=== PATIENT | female | born 1950 | race Caucasian/White ===

== ENCOUNTER → 2021-11-24 | Outpatient (CLI) | payer MEDICARE | END | disposition home or self-care (01) | LOC: LABWHC1 12:34 | PROVIDERS: ATTEND Internal Medicine | DX: E03.9 Hypothyroidism, unspecified (principal) | CPT/HCPCS: 36415; 84443 ==

== ENCOUNTER → 2021-11-25 | Outpatient (CLI) | payer MEDICARE ==
[2021-11-25 15:25] LABS: Potassium 3.9 mmol/L (3.5-5.1)
[2021-11-25 15:26] LABS: Calcium 9.7 mg/dL (8.4-10.2)
[2021-11-25 15:30] LABS: Basophils # (A) 0.1 k/uL (0-0.2); Basophils % (A) 1 %; Eosinophils # (A) 0.4 k/uL (0-0.7); Eosinophils % (A) 6 %; HCT 39.8 % (34.0-46.0); HGB 12.9 gm/dL (11.4-16.0); Lymphocytes # (A) 1.6 k/uL (1.0-4.8); Lymphocytes % (A) 24 %; MCH 30.7 pg (25.0-35.0); MCHC 32.5 g/dL (31.0-37.0); MCV 94.7 fL (80.0-100.0); Mean Platelet Volume 10.1; Monocytes # (A) 0.4 k/uL (0-1.0); Monocytes % (A) 6 %; Neutrophils # (A) 4.1 k/uL (1.3-7.7); Neutrophils % (A) 61 %; Platelet Count 292 k/uL (150-450); RBC 4.21 m/uL (3.80-5.40); RDW 12.9 % (11.5-15.5); WBC 6.7 k/uL (3.8-10.6)
== END | disposition home or self-care (01) ==
LOC: LABPAT 14:09
PROVIDERS: ATTEND Urology
DX: Z01.812 Encounter for preprocedural laboratory examination (principal); N20.1 Calculus of ureter; N20.0 Calculus of kidney
CPT/HCPCS: 36415; 80048; 85025

== ENCOUNTER 2021-12-02 13:21 | Day surgery (SDC) | payer MEDICARE ==
[2021-11-26 11:08] VITALS: BMI 26.2
--- NOTE | 2021-12-01 20:04 | P.GSHP ---
History of Present Illness H&P Date: 12/01/21 Chief Complaint: Left hydronephrosis The patient is a 71-year-old white female with no prior history of urolithiasis. She was recently found to have renal insufficiency. A renal ultrasound was obtained, revealing severe left hydronephrosis with thinned left renal parenchyma. A CT scan was obtained, revealing that the hydronephrosis resulted from 2 left distal ureteral calculi, the largest of which measured 12 mm. - Constitutional Constitutional: Denies chills, Denies fever - Genitourinary (Female) Genitourinary: Reports urinary frequency, Denies dysuria, Denies flank pain, Denies hematuria Past Medical History Past Medical History: Diabetes Mellitus, GERD/Reflux, Hyperlipidemia, Hypertension, Thyroid Disorder History of Any Multi-Drug Resistant Organisms: None Reported Past Surgical History: Heart Catheterization With Stent, Hysterectomy Additional Past Surgical History / Comment(s): COLONOSCOPY Past Anesthesia/Blood Transfusion Reactions: No Reported Reaction Date of Last Stent Placement:: 2008 Smoking Status: Never smoker - Past Family History Father Family Medical History: Cancer Mother Family Medical History: Cancer Brother(s) Family Medical History: Cancer Medications and Allergies Home Medications Medication Instructions Recorded Confirmed Type Aspirin 81 mg PO DAILY 11/26/21 11/26/21 History Atorvastatin [Lipitor] 40 mg PO HS 11/26/21 11/26/21 History Famotidine [Pepcid AC] 10 mg PO DAILY PRN 11/26/21 11/26/21 History Ferrous Sulfate [Feosol] 325 mg PO DAILY 11/26/21 11/26/21 History Levothyroxine Sodium [Synthroid] 100 mcg PO DAILY 11/26/21 11/26/21 History Losartan-Hctz 50-12.5 mg [Hyzaar 1 tab PO DAILY 11/26/21 11/26/21 History 50-12.5] Metoprolol Tartrate 25 mg PO BID 11/26/21 11/26/21 History sitaGLIPtin [Januvia] 100 mg PO DAILY 11/26/21 11/26/21 History Allergies Allergy/AdvReac Type Severity Reaction Status Date / Time No Known Allergies Allergy Verified 11/26/21 11:02 Surgical - Exam - General well developed, well nourished, no distress - Neck no masses, trachea midline - Respiratory normal respiratory effort - Abdomen Abdomen: soft, non tender, no guarding, no rigid, no rebound - Psychiatric oriented to time, oriented to person, oriented to place, speech is normal, memory intact Results - Imaging CT scan - abdomen: report reviewed, image reviewed Assessment and Plan (1) Calculus of ureter Status: Acute Code(s): N20.1 - CALCULUS OF URETER SNOMED Code(s): 55309245 Plan: The patient was offered the option of extracorporal shockwave lithotripsy (ESWL) versus ureteroscopy with laser lithotripsy. The pros, cons, and risks of each were reviewed in detail. She has elected to undergo cystoscopy, left ureteroscopy with Holmium laser lithotripsy and possible stone basketing, left ureteral stent insertion. Risks include anesthesia, bleeding, infection, inability to successfully remove the calculi, and ureteral injury. She understands the possible need for secondary procedure.
[~2021-12-02 13:21] MED LIST: DEXAMETHASONE SOD PHOSPHATE 4 MG/ML 1 ML VIAL IV ONE; HYDROmorphone 0.5 MG/0.5 ML SYRINGE IVP PRN; LACTATED RINGERS 1,000 ML IV SCH; LIDOCAINE 1% (10MG/ML) FOR IV START INTRADERMA PRN; ONDANSETRON 4 MG/2 ML VIAL IVP ONE
--- NOTE | 2021-12-02 13:54 | XR ---
EXAMINATION TYPE: XR KUB DATE OF EXAM: 12/02/2021 COMPARISON: None HISTORY: Prelithotripsy TECHNIQUE: One view abdominal series FINDINGS: There is a large calculus in the left hemipelvis measuring a diameter 7 mm which could be in the cour se of the left ureter. Additional pelvic calcifications on the right are likely vascular. Scoliosis with severe degenerative disc disease. Bowel gas pattern nonspecific with no obstruction. A rthropathy of the hips. IMPRESSION: 1. Large left hemipelvic calcification with diameter 7 mm could be within the course of the left uret er correlate clinically.
[2021-12-02 14:08] VITALS: RESP 16
[2021-12-02 14:08] LABS: Glucose,Whole Blood 127 mg/dL (75-99)
[2021-12-02] MEDS ORDERED: SUCCINYLCHOLINE CHLORIDE 100 MG/5 ML SYR IV ONE (15:58)
[2021-12-02] MEDS ORDERED: ePHEDrine 50 MG/ML 1 ML AMP ONE (15:58)
[2021-12-02] MEDS ORDERED: LIDOCAINE 1% INJ 10MG/ML (20 ML MDV) ONE (15:58)
[2021-12-02] MEDS ORDERED: PROPOFOL 10 MG/ML 20 ML VIAL IV ONE (15:58)
[2021-12-02] MEDS ORDERED: MIDAZOLAM 2 MG/2 ML VIAL ONE (15:58)
[2021-12-02] MEDS ORDERED: LACTATED RINGERS 1,000 ML IV ONE (17:15)
[2021-12-02 18:01] VITALS: TEMP 97.5
--- NOTE | 2021-12-02 18:25 | P.OP ---
Date of Procedure: 12/02/21 Preoperative Diagnosis: Left ureteral calculus Postoperative Diagnosis: Same Procedure(s) Performed: Cystoscopy, left ureteroscopy with Holmium laser lithotripsy, left ureteral stent insertion Anesthesia: GETA Surgeon: Latrell Tadeo Estimated Blood Loss (ml): 0 IV fluids (ml): 550 Condition: stable Disposition: PACU Indications for Procedure: The patient is a 71-year-old white female with no prior history of urolithiasis. She was recently found to have renal insufficiency. A renal ultrasound was obtained, revealing severe left hydronephrosis with thinned left renal parenchyma. A CT scan was obtained, revealing that the hydronephrosis resulted from 2 left distal ureteral calculi, the largest of which measured 12 mm. Preoperative KUB x-ray suggests a single left distal ureteral calculus measuring 8 x 16 mm. Operative Findings: Large left distal ureteral calculus, impacted, removed completely. Description of Procedure: The patient was taken to the operating room and placed in the dorsolithotomy position, with legs supported in Usman stirrups. The external genitalia was prepped and draped sterilely. The 30 lens was used to introduce the 21-Tuvaluan Brush cystoscopic sheath through the urethra and into the bladder under direct vision. The bladder was examined in its entirety. Both ureteral orifices were normal anatomic location and configuration, and clear urine effluxed from both. No tumors or foreign bodies were seen. The Brush semirigid ureteroscope was advanced into the bladder, and the left ureteral orifice was cannulated. The ureteroscope was slowly advanced, up to the calculus, which was partially covered by mucus and mucosa overgrowing it. The 272 micron Holmium laser probe was passed through the ureteroscope, and lithotripsy was performed. The calculus was fragmented completely. As the calculus fragmented, portions of the calculus adherent to the mucosa were gently pried away from the mucosa prior to fragmenting them with the laser. As the procedure ensued, all calculus fragments migrated distally into the bladder. Once lithotripsy was completed, the ureter was inspected. There was no evidence of ureteral perforation. Portions of the ureter appeared de-epithelialized where the calculus had been adherent to it. A 0.035 inch Glidewire was passed through the ureteroscope and up to the left renal pelvis, were coiled. The ureteroscope was removed, and the Glidewire was backloaded into the cystoscope, which was passed into the bladder. A 24 cm, 6-Tuvaluan double-J ureteral stent was placed over the wire. Proper stent positioning was verified fluoroscopically and endoscopically. The bladder was emptied and the cystoscope removed. Calculus fragments removed from the bladder were saved and sent for chemical analysis. The patient tolerated the procedure well and was taken to the recovery room in stable condition. [facility] Report: Procedure Acuity: Elective Stone Size and Location: 8 x 16 mm, left distal ureter Ureteral Dilation: No Ureteral Access Sheath Used: No Stone Sent for Analysis: Yes All Stones/Fragments Were Removed with a Basket: No Complications: No Preoperative Antibiotics Given: Yes Stent Placed: Yes If Stent Placed, Was String Left Attached: No If Stent Placed, When is it to be Removed: 2 weeks Discharge Medications: Oxybutynin chloride
[2021-12-02 18:51] VITALS: BP 155/62; PULSE 77
--- NOTE | 2021-12-02 19:06 | FL ---
Fluoroscopy HISTORY: Stent placement 8 seconds fluoroscopy time supplied to the referring clinician. 1 intraoperative C-arm images docume nt the procedure. See dictated report from urology.
== END 2021-12-02 19:12 | disposition home or self-care (01) ==
LOC: OR 13:21
PROVIDERS: ATTEND Urology
DX: N20.1 Calculus of ureter (principal); E11.9 Type 2 diabetes mellitus without complications; I10 Essential (primary) hypertension; E78.5 Hyperlipidemia, unspecified; K21.9 Gastro-esophageal reflux disease without esophagitis
CPT/HCPCS: 52356; 82365; 74018; C2625; C1758; C1769; J2250; J1100; J0690; J2405; J2001; J0330; J2704

== ENCOUNTER → 2022-02-02 | Outpatient (CLI) | payer MEDICARE ==
--- NOTE | 2022-02-02 10:46 | US ---
EXAMINATION TYPE: US kidneys/renal and bladder DATE OF EXAM: 02/02/2022 COMPARISON: XR December 02, 2021 CLINICAL HISTORY: N20.1 CALCULUS OF URETER. Calculus of left ureter. EXAM MEASUREMENTS: Right Kidney: 11.7 x 5.6 x 5.5 cm Left Kidney: 9.3 x 4.5 x 4.3 cm Right Kidney: Anechoic area seen upper pole 1.4 x 1.3 x 0.8 cm-possible dilated upper collecting syst em. Left Kidney: Anechoic appearance of hydronephrosis present. Hyperechoic area with posterior shadowing seen lower pole: 0.8 x 0.7 x 0.4 cm. Bladder: Appears anechoic. Bilateral Jets seen: Yes, left jet appears to be weaker. Increased cortical echogenicity right kidney. 1.3 cm anechoic focus upper pole right kidney favors ce ntral simple thin-walled cyst. Left kidney shows moderate to severe hydronephrosis with increased cor tical echogenicity. There is hyperechoic 8 mm calculus lower pole collecting system thought present. No corresponding calculus clearly seen on recent x-ray. Bladder satisfactorily distended. Bilateral d istal ureter jets are present the left is more faint in appearance suggesting probable partial obstru ction. IMPRESSION: [id number] left-sided hydronephrosis. Advise further workup.
== END | disposition home or self-care (01) ==
LOC: RADUSWWP 09:42
PROVIDERS: ATTEND Urology
DX: N13.2 Hydronephrosis with renal and ureteral calculous obstruction (principal)
CPT/HCPCS: 76770

== ENCOUNTER → 2022-03-10 | Outpatient (CLI) | payer MEDICARE ==
[2022-03-10 13:26] LABS: Appearance,Urine Clear (Clear); Bilirubin,Urine Negative (Negative); Blood,Urine Negative (Negative); Color,Urine Light Yellow; Glucose,Urine (UA) 4+ (Negative); Ketones,Urine Negative (Negative); Leukocyte Esterase,Urine Negative (Negative); Nitrite,Urine Negative (Negative); PH, Urine 5.5 (5.0-8.0); Protein,Urine Negative (Negative); Specific Gravity,Urine 1.013 (1.001-1.035); Urobilinogen,Urine <2.0 mg/dL (<2.0)
[2022-03-10 13:38] LABS: Creatinine,Urine Random 44.5 mg/dL; Protein/Creatinine Ratio,Urine 0.225
[2022-03-10 19:49] LABS: Basophils # (A) 0.06 X 10*3/uL (0.00-0.10); Eosinophils # (A) 0.26 X 10*3/uL (0.04-0.35); Eosinophils % (A) 4.2 %; HCT 42.5 % (37.2-46.3); HGB 13.6 g/dL (12.0-15.0); Immature Grans, Automated 0.5 %; Lymphocytes # (A) 1.14 X 10*3/uL (0.90-5.00); Lymphocytes % (A) 18.3 %; MCH 29.2 pg (27.0-32.0); MCV 91.2 fL (80.0-97.0); Mean Platelet Volume 11.8 fL (9.5-12.2); Monocytes # (A) 0.69 X 10*3/uL (0.20-1.00); Monocytes % (A) 11.1 %; NRBC Per 100 WBC 0 /100 WBCS (0.0-0.0); Neutrophils # (A) 4.06 X 10*3/uL (1.80-7.70); Neutrophils % (A) 64.9 %; Platelet Count 275 X 10*3/uL (140-440); RBC 4.66 X 10*6/uL (4.10-5.20); RDW 12.4 % (11.5-14.5); WBC 6.24 X 10*3/uL (4.50-10.00)
[2022-03-10 19:50] LABS: Anti-DNA, DS unit <1.0 IU/mL; DNA Double-Stranded NEGATIVE (NEGATIVE)
[2022-03-10 21:17] LABS: % Iron Saturation 16.75 (12.00-45.00); African American GFR (CKD) 38.7 (60.0-200.0); Albumin 4.4 g/dL (3.8-4.9); Albumin/Globulin Ratio 1.52 (1.60-3.17); Anion Gap 12.3 mmol/L (10.00-18.00); BUN/Creat Ratio 21.11 Ratio (12.00-20.00); Blood Urea Nitrogen 32.3 mg/dL (9.0-27.0); Calcium 9.9 mg/dL (8.7-10.3); Carbon Dioxide 21.7 mmol/L (20.0-27.5); Globulin 2.9 g/dL (1.6-3.3); Magnesium 2.2 mg/dL (1.5-2.4); Non-African American GFR(CKD) 33.4 (60.0-200.0); Phosphorus 3.5 mg/dL (2.4-5.1); Potassium 4.1 mmol/L (3.5-5.5); Total Bilirubin 0.3 mg/dL (0.30-1.20); Total Protein 7.3 g/dL (6.2-8.2); Uric Acid 6.5 mg/dL (2.9-7.7)
[2022-03-11 06:22] LABS: Microalbumin Creatinine Ratio <30 mg/g Creat (0-30); Urine Creatinine 44.2 mg/dL (28.0-217.0)
[2022-03-11 06:42] LABS: Total Protein 24 Hour,Urine 7.4 mg/dL (0.0-165.0)
[2022-03-11 13:46] LABS: C-ANCA <1:20 Titer (<1:20)
[2022-03-11 14:45] LABS: Free Kappa Lt Chain Qnt, Serum 3.28 mg/dL (0.33-1.94); Free Lambda Lt Chain Qnt, Seru 2.15 mg/dL (0.57-2.63)
[2022-03-11 21:29] LABS: Total Volume 24 Hour,Urine 2100 mL
== END | disposition home or self-care (01) ==
LOC: LABWHC1 12:08
PROVIDERS: ATTEND Nurse Practitioner Family
DX: D64.9 Anemia, unspecified (principal); N39.0 Urinary tract infection, site not specified; R50.9 Fever, unspecified; R80.9 Proteinuria, unspecified; E21.3 Hyperparathyroidism, unspecified; E55.9 Vitamin D deficiency, unspecified; M10.9 Gout, unspecified
CPT/HCPCS: 36415; 80053; 81003; 81050; 82043; 82306; 82570; 82728; 83516; 83540; 83550; 83735; 83883; 83970; 84100; 84156; 84550; 85025; 86038; 86160; 86162; 86225; 86255; 86334

== ENCOUNTER → 2022-05-26 | Outpatient (CLI) | payer MEDICARE ==
--- NOTE | 2022-05-26 13:53 | US ---
EXAMINATION TYPE: US kidneys/renal and bladder DATE OF EXAM: 05/26/2022 COMPARISON: Ultrasound February 02, 2022 CLINICAL HISTORY: N13.30 HYDRONEPHROSIS. Left Kidney Hydronephrosis, Left sided lithotripsy EXAM MEASUREMENTS: Right Kidney: 10.2 x 4.9 x 4.3 cm Left Kidney: 9.3 x 4.1 x3.4 cm Right Kidney: No hydronephrosis seen, hypoechoic round area noted measuring 1.5cm in pelvis Left Kidney: Prominence seen in pelvis and ureter no obvious stones visualized, cortical thinning not ed Bladder: Appears wnl Bilateral Jets seen: No, Rt jet seen multiple times, left jet non vis There is [id number] left-sided hydronephrosis slightly less prominent from prior ultrasound. Th ere is 1.5 cm benign-appearing thin-walled cyst in the right kidney upper to midpole level redemonstr ated. Prior visualized shadowing nephrolithiasis left kidney not clearly seen in the lower pole level . The urinary bladder is anechoic. Bilateral ureteral jets are not seen. IMPRESSION: Mild to moderate left-sided hydronephrosis is present currently improved from prior. Cons ider new small obstructing left ureter calculus as distal left ureter jet not identified. Follow-up a nd progress study advised.
== END | disposition home or self-care (01) ==
LOC: RADUSWWP 12:20
PROVIDERS: ATTEND Urology
DX: N13.30 Unspecified hydronephrosis (principal)
CPT/HCPCS: 76770

== ENCOUNTER 2022-11-11 09:20 | Day surgery (SDC) | payer MEDICARE ==
--- NOTE | 2022-11-10 19:58 | P.GSHP ---
History of Present Illness H&P Date: 11/10/22 Chief Complaint: Left hydronephrosis The patient is a 72-year-old white female with no prior history of urolithiasis. She was found in late 2020 to have renal insufficiency. A renal ultrasound was obtained, revealing severe left hydronephrosis with thinned left renal parenc hyma. A CT scan was obtained, revealing that the hydronephrosis resulted from 2 left distal ureteral calculi, the largest of which measured 12 mm. She underwent ureteroscopic removal of the calculus, which measured 8 x 16 mm, in November 2021. However, her hydronephrosis failed to resolve. She recently underwent cystoscopy with left retrograde pyelogram and was found to have a left distal ureteral stricture. It was not possible to place a left ureteral stent, as a wire could not be passed beyond the stricture. - Constitutional Constitutional: Denies chills, Denies fever - Genitourinary (Female) Genitourinary: Denies dysuria, Denies flank pain, Denies hematuria Past Medical History Past Medical History: Diabetes Mellitus, GERD/Reflux, Hyperlipidemia, Hypertension, Osteoarthritis (OA), Renal Disease, Thyroid Disorder Additional Past Medical History / Comment(s): blockage in tube from kidney to bladder on the left side per pt., recent hx. of fatty liver History of Any Multi-Drug Resistant Organisms: None Reported Past Surgical History: Heart Catheterization With Stent, Hysterectomy Additional Past Surgical History / Comment(s): COLONOSCOPY, recent attempt to insert nephrostomy tube @[facility] Past Anesthesia/Blood Transfusion Reactions: No Reported Reaction Date of Last Stent Placement:: 2008 Smoking Status: Never smoker - Past Family History Father Family Medical History: Cancer Mother Family Medical History: Cancer Brother(s) Family Medical History: Cancer Medications and Allergies Home Medications Medication Instructions Recorded Confirmed Type Aspirin 325 mg PO DAILY 11/26/21 11/03/22 History Atorvastatin [Lipitor] 40 mg PO HS 11/26/21 11/03/22 History Famotidine [Pepcid AC] 10 mg PO DAILY PRN 11/26/21 11/03/22 History Ferrous Sulfate [Feosol] 325 mg PO DAILY 11/26/21 11/03/22 History Levothyroxine Sodium [Synthroid] 88 mcg PO DAILY 11/26/21 11/03/22 History Metoprolol Tartrate 25 mg PO BID 11/26/21 11/03/22 History Oxybutynin Chloride [Oxybutynin 10 mg PO DAILY #30 tab 12/02/21 11/03/22 Rx Chloride ER] Dulaglutide [Trulicity] 0.75 mg SQ LIND 11/03/22 11/03/22 History Empagliflozin [Jardiance] 10 mg PO DAILY 11/03/22 11/03/22 History Loratadine [Claritin] 10 mg PO DAILY 11/03/22 11/03/22 History Spironolactone [Aldactone] 50 mg PO DAILY 11/03/22 11/03/22 History amLODIPine [Norvasc] 10 mg PO DAILY 11/03/22 11/03/22 History Allergies Allergy/AdvReac Type Severity Reaction Status Date / Time No Known Allergies Allergy Verified 11/03/22 14:48 Surgical - Exam - General well developed, well nourished, no distress - Respiratory normal respiratory effort - Abdomen Abdomen: soft, non tender, no guarding, no rigid, no rebound - Genitourinary normal external genitalia - Psychiatric oriented to time, oriented to person, oriented to place, speech is normal, memory intact Assessment and Plan (1) Hydronephrosis with ureteral stricture, not elsewhere classified Status: Acute Code(s): N13.1 - HYDRONEPHROSIS W URETERAL STRICTURE, NEC SNOMED Code(s): 26057869 Plan: The patient will undergo left percutaneous nephrostomy tube placement by IR, at which time placement of an antegrade ureteral stent will be attempted. The rat ionale for this is been reviewed in detail with the patient. She is aware of potential risks, which include ureteral injury and inability to successfully place a stent, in which case a nephrostomy tube will be left in place and she will be advised to undergo a left ureteral reimplant.
[2022-11-11 09:58] LABS: Glucose,Whole Blood 123 mg/dL (70-110)
[2022-11-11 10:12] LABS: Basophils # (A) 0.1 k/uL (0-0.2); Basophils % (A) 1 %; Eosinophils # (A) 0.3 k/uL (0-0.7); Eosinophils % (A) 4 %; HGB 14.3 gm/dL (11.4-16.0); Lymphocytes # (A) 1.4 k/uL (1.0-4.8); Lymphocytes % (A) 19 %; MCH 30.2 pg (25.0-35.0); MCHC 34.1 g/dL (31.0-37.0); MCV 88.6 fL (80.0-100.0); Mean Platelet Volume 10.2; Monocytes # (A) 0.6 k/uL (0-1.0); Monocytes % (A) 8 %; Neutrophils % (A) 66 %; Platelet Count 272 k/uL (150-450); RBC 4.75 m/uL (3.80-5.40); RDW 12.3 % (11.5-15.5); WBC 7.6 k/uL (3.8-10.6)
[2022-11-11 10:13] VITALS: RESP 18
[2022-11-11] MEDS ORDERED: SODIUM CHLORIDE 0.9% 500 ML 500 ML IV ONE (10:14)
[2022-11-11 10:45] LABS: Calcium 9.6 mg/dL (8.4-10.2)
[2022-11-11] MEDS: fentaNYL (PF) 50 MCG/ML 2 ML AMP IV ONE ×2 (11:13→12:05)
[2022-11-11] MEDS ORDERED: MIDAZOLAM 2 MG/2 ML VIAL IV ONE (11:13)
[2022-11-11] MEDS ORDERED: LIDOCAINE 1% INJ 10MG/ML (30 ML VIAL-PF) SQ ONE (11:14)
[2022-11-11 11:16] LABS: Potassium 4.1 mmol/L (3.5-5.1)
[2022-11-11] MEDS ORDERED: IOPAMIDOL-370 100ML BTL INJ ONE (12:20)
[2022-11-11 14:19] VITALS: BP 131/68; PULSE 68
--- NOTE | 2022-11-11 14:59 | IR ---
PROCEDURE: Left ureteral stent placement, left nephrostomy DATE: 11/11/2022 EHS MANAGER: Dr. Avila MENTAL HEALTH COORDINATOR: None CLINICAL HISTORY: Distal left ureteral stricture. Prior to the procedure, I spoke with Dr. Tadeo. COMPARISON: Ultrasound 07/07/2022 MATERIALS UTILIZED: 8.5 Gambian nephrostomy, 8 Gambian x24 cm ureteral stent, 18-gauge needle, Amplatz wire, glide wire adv antage, 5 Gambian angled glide catheter, a J-wire, 6 Gambian sheath, 9 Gambian peel-away sheath, 8 Frenc h dilator, silk suture, drainage bag CONTRAST: Recorded in laboratory technology teacher procedure record ANESTHESIA: Conscious Sedation was administered under my supervision, with cardiorespiratory monitori ng performed by independent and qualified nursing personnel. Medications and dosages are recorded sep arately in the electronic medical record. Total intra-service time recorded laboratory technology teacher procedure record . FLUOROSCOPY TIME: 9.2 minutes PROCEDURE: The procedure, risks, and alternatives, were discussed with the patient and all questions were answer ed. Written informed consent obtained. Accompanying paperwork was verified for accuracy. Directed his tory and physical exam performed prior to the procedure. Medication reconciliation performed by nursi ng personnel. Procedure was performed using a cap, sterile gown, sterile gloves, a large sterile shee t, hand hygiene and 2% chlorhexidine for cutaneous antisepsis. The patient was positioned prone on th e table and prepped and draped in usual sterile fashion. A critical pause was performed with assisti ng personnel just prior to the procedure with the patient's identity confirmed using 2 identifiers, c onfirming site and side. 7 ml 1% lidocaine was administered for local anesthesia. A posterior lower pole calyx and the left k idney was punctured under direct ultrasound guidance with an 18-gauge needle. A 0.035 Glidewire advan tage was advanced into the ureter. The 18-gauge needle was removed over the wire and replaced with a 6 Gambian sheath. A 5 Gambian angle glide catheter was advanced over the wire and contrast injected in the distal ureter demonstrating near-complete occlusion of the distal ureter at the ureterovesicular junction. Access across the occlusion was obtained with a Glidewire advantage and 5 Gambian angled gli de catheter. Once in urinary bladder, the Glidewire advantage was removed and replaced with an Amplat z wire. A short J-wire was advanced through the 6 Gambian sheath into the proximal ureter to use as a safety wire. The sheath was then removed. Dilatation of the tract was performed with an 8 Gambian dila tor. Then, a 9 Gambian peel-away sheath was advanced over the Amplatz wire. Through the peel-away shabazz th and over the wire, an 8 Gambian x24 cm antegrade ureteral stent was advanced. The distal loop was f ormed in urinary bladder and the proximal loop in renal pelvis. The positioning suture was cut and re moved. Access was maintained with a wire and over this wire, an 8.5 Gambian nephrostomy catheter was a dvanced. The distal loop was formed in renal pelvis. The retention string was locked and cut. Fluoros copy showed the catheter in good position. The catheter was secured at the skin using a silk suture. A sterile dressing was applied over the catheter. The patient tolerated the procedure well. There were no immediate complications. IMPRESSION: Near complete occlusion of the left ureterovesicular junction causing moderate left hydroureteronephr osis. An 8 Gambian x24 cm antegrade ureteral stent was placed as was an 8.5 Gambian nephrostomy catheter. Giv en red-tinged urine at the completion of procedure, the nephrostomy was attached to dependent bag dra perez. Patient will be seen by Dr. Tadeo in one week at which time the nephrostomy will be evaluated and possibly removed.
== END 2022-11-11 14:31 | disposition home or self-care (01) ==
LOC: OR 09:20
PROVIDERS: ATTEND Radiology Diagnostic Radiology
DX: N13.1 Hydronephrosis with ureteral stricture, not elsewhere classified (principal); E11.9 Type 2 diabetes mellitus without complications; K21.9 Gastro-esophageal reflux disease without esophagitis; E78.5 Hyperlipidemia, unspecified; I11.0 Hypertensive heart disease with heart failure; N28.9 Disorder of kidney and ureter, unspecified; M19.90 Unspecified osteoarthritis, unspecified site; E07.9 Disorder of thyroid, unspecified; Z87.448 Personal history of other diseases of urinary system; Z87.19 Personal history of other diseases of the digestive system; Z95.5 Presence of coronary angioplasty implant and graft; Z98.890 Other specified postprocedural states; Z79.82 Long term (current) use of aspirin; Z79.02 Long term (current) use of antithrombotics/antiplatelets; Z79.890 Hormone replacement therapy; Z79.1 Long term (current) use of non-steroidal anti-inflammatories (NSAID); Z79.899 Other long term (current) drug therapy; Z79.84 Long term (current) use of oral hypoglycemic drugs
CPT/HCPCS: 50695; 75984; 80048; 85025; 76942; C1769 ×6; C2625; C1729; C1894; C1892; J2250; J0690; J2001; J3010; Q9967

== ENCOUNTER → 2023-02-16 | Outpatient (CLI) | payer MEDICARE ==
--- NOTE | 2023-02-16 11:07 | US ---
EXAMINATION TYPE: US kidneys/renal and bladder DATE OF EXAM: 02/16/2023 COMPARISON: US abdomen July 07, 2022 CLINICAL HISTORY: N13.1 HYDRONEPHROSIS. F/U left hydro EXAM MEASUREMENTS: Right Kidney: 9.7 x 4.6 x 4.6 cm Left Kidney: 9.2 x 3.3 x 2.7 cm Right Kidney: wnl, lower pole gassed out Left Kidney: Cortical thinning, Cyst mid/lateral= 1.0 x 0.8 x 1.2 cm/ Mild hydro, improvement when co mpared to prior Bladder: wnl Bilateral Jets seen: Yes Right kidney remains within normal limits. No masses or hydronephrosis is identified. The urinary bl adder is adequately distended. Bilateral ureteral jets are seen. Cortical thinning and increased cortical echogenicity left kidney redemonstrated. A 1.0 cm simple brittni earing thin-walled cyst is marked by technologist on today's study. There is mild pyelocaliectasis wh ich appears less prominent versus prior. IMPRESSION: Mild to minimal left-sided hydronephrosis is improved from prior study. There is presumed diminished function of the left kidney relative to right kidney. This can be further evaluated with nuclear medicine study if desired.
== END | disposition home or self-care (01) ==
LOC: RADUSWWP 10:19
PROVIDERS: ATTEND Urology
DX: N13.1 Hydronephrosis with ureteral stricture, not elsewhere classified (principal)
CPT/HCPCS: 76770

== ENCOUNTER → 2023-06-01 | Outpatient (CLI) | payer MEDICARE ==
--- NOTE | 2023-06-01 10:36 | US ---
EXAMINATION TYPE: US kidneys/renal and bladder DATE OF EXAM: 06/01/2023 COMPARISON: US CLINICAL INDICATION: Female, 72 years old with history of N13.1; Pt states follow-up of left renal hy drew EXAM MEASUREMENTS: Right Kidney: 10.1 x 4.6 x 4.6 cm Left Kidney: 9.4 x 3.1 x 2.9 cm Right Kidney: wnl, lower pole gassed out Left Kidney: Appearance similar to prior, cyst mid/lateral= 1.3 x 0.8 x 1.0 cm/ Cortical thinning, mi ld hydro as unchanged from prior . A 1.0 cm cyst at the inferior pole left kidney Bladder: wnl Bilateral Jets seen: Yes IMPRESSION: 1. Left renal cysts
== END | disposition home or self-care (01) ==
LOC: RADUSWWP 10:07
PROVIDERS: ATTEND Urology
DX: N13.1 Hydronephrosis with ureteral stricture, not elsewhere classified (principal); N28.1 Cyst of kidney, acquired
CPT/HCPCS: 76770

== ENCOUNTER → 2023-09-06 | Outpatient (CLI) | payer MEDICARE ==
--- NOTE | 2023-09-06 10:35 | US ---
EXAMINATION TYPE: US kidneys/renal and bladder DATE OF EXAM: 09/06/2023 COMPARISON: CLINICAL INDICATION: Female, 73 years old with history of N13.1 HYDRONEPHROSIS W URETERAL STRICTURE, NEC; Hx of left renal stone with stent. No symptoms at time of scan. EXAM MEASUREMENTS: Right Kidney: 10.4 x 4.8 x 5.0 cm Left Kidney: 8.4 x 3.1 x 3.2 cm Right Kidney: No hydronephrosis or masses seen Left Kidney: Mid lateral cystic appearing lesion = 1.1 x 1.0 x 1.0 cm. Possible dilated renal collec ting system within upper and lower renal sinus. Appears smaller in size compared to contralateral ki dney. Cortical thinning. Bladder: distended, anechoic Right jet seen No nephrolithiasis is seen. No masses are identified. The urinary bladder is anechoic. IMPRESSION: 1. Mild left-sided hydronephrosis of uncertain etiology. Cortical thinning seen.
== END | disposition home or self-care (01) ==
LOC: RADUSWWP 09:33
PROVIDERS: ATTEND Urology
DX: N13.1 Hydronephrosis with ureteral stricture, not elsewhere classified (principal); N13.30 Unspecified hydronephrosis
CPT/HCPCS: 76770

== ENCOUNTER → 2024-01-24 | Outpatient (CLI) | payer MEDICARE ==
[2024-01-24 16:36] LABS: HCT 45.8 % (37.2-46.3); HGB 14.6 g/dL (12.0-15.0); MCH 29.3 pg (27.0-32.0); MCHC 31.9 g/dL (32.0-37.0); MCV 91.8 FL (80.0-97.0); Mean Platelet Volume 10.9 FL (9.5-12.2); NRBC Per 100 WBC 0 X 10*3/uL (0.00-0.01); Platelet Count 296 X 10*3/uL (140-440); RBC 4.99 X 10*6/uL (4.10-5.20); RDW 13.3 % (11.5-14.5)
[2024-01-24 16:58] LABS: % Iron Saturation 20.72 (12.00-45.00); ALT 49 U/L (8-44); AST 27 U/L (13-35); Albumin 4.2 g/dL (3.8-4.9); Albumin/Globulin Ratio 1.56 Ratio (1.60-3.17); Alkaline Phosphatase 146 U/L (41-126); BUN/Creat Ratio 21.69 Ratio (12.00-20.00); Blood Urea Nitrogen 34.7 mg/dL (9.0-27.0); Calcium 9.8 mg/dL (8.7-10.3); Chloride 105 mmol/L (96-109); Globulin 2.7 g/dL (1.6-3.3); Glucose 138 mg/dL (70-110); Iron 69 UG/DL (50-170); Magnesium 2.4 mg/dL (1.5-2.4); Phosphorus 3.5 mg/dL (2.4-5.1); Potassium 4.8 mmol/L (3.5-5.5); Sodium 139 mmol/L (135-145); Total Bilirubin 0.3 mg/dL (0.3-1.2); Total Iron Binding Capacity 333 UG/DL (228-460); Total Protein 6.9 g/dL (6.2-8.2); Uric Acid 6.3 mg/dL (2.9-7.7)
[2024-01-24 17:17] LABS: Appearance,Urine Cloudy (Clear); Bilirubin,Urine Negative (Negative); Blood,Urine Trace (Negative); Color,Urine Yellow (Yellow); Ketones,Urine Negative (Negative); Nitrite,Urine Negative (Negative); PH, Urine 5.5; Specific Gravity,Urine 1.015 (1.001-1.030); Urobilinogen,Urine 0.2 E.U./DL
[2024-01-24 17:21] LABS: Bacteria,Urine Trace (None Seen)
[2024-01-24 22:57] LABS: Urine Creatinine 42.2 mg/dL (28.0-217.0)
== END | disposition home or self-care (01) ==
LOC: LABWHC1 10:19
PROVIDERS: ATTEND Nurse Practitioner Family
DX: N25.81 Secondary hyperparathyroidism of renal origin (principal); N18.32 Chronic kidney disease, stage 3b; D63.1 Anemia in chronic kidney disease; N39.0 Urinary tract infection, site not specified; E55.9 Vitamin D deficiency, unspecified; M10.9 Gout, unspecified; R80.9 Proteinuria, unspecified
CPT/HCPCS: 36415; 80053; 81001; 82043; 82306; 82570; 82728; 83540; 83550; 83735; 83970; 84100; 84550; 85027

== ENCOUNTER → 2024-03-20 | Outpatient (CLI) | payer MEDICARE ==
--- NOTE | 2024-03-20 14:37 | US ---
EXAMINATION TYPE: US kidneys/renal and bladder DATE OF EXAM: 03/20/2024 COMPARISON: 09/06/2023. CLINICAL INDICATION: Female, 73 years old with history of N13.30 HYDRONEPHROSIS; history of hydroneph rosis EXAM MEASUREMENTS: Right Kidney: 10.0 x 5.0 x 4.5 cm Left Kidney: 8.0 x 3.2 x 3.2 cm Right Kidney: no evidence of hydronephrosis , no renal calculi or masses. Left Kidney: atrophic, thin renal cortex. mild hydronephrosis. cystic lesion mid = 1.3 x 1.0 x 1.2cm Bladder: appears wnl Bilateral Jets seen: no IMPRESSION: 1. No evidence for acute process. There remains dilation of the left renal collecting system similar to 23. 2. Atrophic left kidney. 3. Left simple renal cyst.
== END | disposition home or self-care (01) ==
LOC: RADUSWWP 13:07
PROVIDERS: ATTEND Urology
DX: N26.1 Atrophy of kidney (terminal) (principal); N28.1 Cyst of kidney, acquired; N13.30 Unspecified hydronephrosis
CPT/HCPCS: 76770

== ENCOUNTER → 2024-07-25 | Outpatient (CLI) | payer MEDICARE ==
[2024-07-25 18:57] LABS: Basophils # (A) 0.07 X 10*3/uL (0.00-0.10); Basophils % (A) 0.9 %; Eosinophils # (A) 0.32 X 10*3/uL (0.04-0.35); Eosinophils % (A) 4.2 %; HCT 44.7 % (37.2-46.3); Lymphocytes # (A) 1.18 X 10*3/uL (0.90-5.00); Lymphocytes % (A) 15.3 %; MCH 30.2 pg (27.0-32.0); MCHC 31.3 g/dL (32.0-37.0); MCV 96.3 FL (80.0-97.0); Mean Platelet Volume 12.1 FL (9.5-12.2); Monocytes # (A) 0.71 X 10*3/uL (0.20-1.00); Monocytes % (A) 9.2 %; NRBC Per 100 WBC 0 X 10*3/uL (0.00-0.01); Neutrophils # (A) 5.37 X 10*3/uL (1.80-7.70); Neutrophils % (A) 69.9 %; Platelet Count 285 X 10*3/uL (140-440); RBC 4.64 X 10*6/uL (4.10-5.20); RDW 13.2 % (11.5-14.5); WBC 7.69 X 10*3/uL (4.50-10.00)
[2024-07-25 19:13] LABS: ALT 94 U/L (8-44); AST 59 U/L (13-35); Alkaline Phosphatase 195 U/L (41-126); BUN/Creat Ratio 11.88 Ratio (12.00-20.00); Calcium 9.4 mg/dL (8.7-10.3); Carbon Dioxide 26.4 mmol/L (21.6-31.8); Chloride 104 mmol/L (96-109); Globulin 2.5 g/dL (1.6-3.3); Glucose 172 mg/dL (70-110); Potassium 4.3 mmol/L (3.5-5.5); Sodium 140 mmol/L (135-145); Total Bilirubin 0.5 mg/dL (0.3-1.2); Total Protein 6.5 g/dL (6.2-8.2)
== END | disposition home or self-care (01) ==
LOC: LABWHC1 12:20
PROVIDERS: ATTEND Internal Medicine Gastroenterology
DX: K76.0 Fatty (change of) liver, not elsewhere classified (principal)
CPT/HCPCS: 36415; 80053; 85025

== ENCOUNTER → 2024-08-15 | Outpatient (CLI) | payer MEDICARE ==
--- NOTE | 2024-08-15 09:49 | US ---
EXAMINATION TYPE: US abdomen limited DATE OF EXAM: 08/15/2024 COMPARISON: NONE CLINICAL INDICATION: Female, 74 years old with history of R74.8 ABN LIVER ENZYMES; Abnormal labs TECHNIQUE: Grayscale and color Doppler imaging of the right upper quadrant was performed. FINDINGS: EXAM MEASUREMENTS: Liver Length: 14.4 cm Gallbladder Wall: 0.2 cm CBD: 0.3 cm Right Kidney: 9.2 x 4.7 x 4.7 cm MINE ENVIRONMENTAL ENGINEER NOTES:Limited due to overlying bowel gas Pancreas: Not well seen, echogenic in appearance Liver: wnl as visualized Gallbladder: no stone or wall thickening Evidence for sonographic Westbrook's sign: neg CBD: wnl, limited visualization Right Kidney: No hydronephrosis or masses seen IMPRESSION: No evidence for acute process. [facility], , 08/15/2024 9:46 AM
== END | disposition home or self-care (01) ==
LOC: RADUSWWP 07:52
PROVIDERS: ATTEND Internal Medicine
DX: R74.8 Abnormal levels of other serum enzymes (principal)
CPT/HCPCS: 76705

== ENCOUNTER → 2025-03-06 | Outpatient (CLI) | payer MEDICARE ==
--- NOTE | 2025-03-06 14:36 | BD ---
EXAMINATION TYPE: Axial Bone Density DATE OF EXAM: 03/06/2025 CLINICAL HISTORY: 74 years old Female. ICD-10 CODE: N95.8 OTHER SPECIFIED MENOPAUSAL AND PERIMENOPAU SA , Additional History: Height: 60.7 in Weight: 146 lbs FRAX RISK QUESTIONS: Secondary Osteoporosis: 3. Menopause before 43: partial hysterectomy age 34 5. Chronic liver disease: fatty liver MEDICATIONS: Thyroid Medications: yes Which medication: Synthroid How Lon+ years EXAM MEASUREMENTS: Bone mineral densitometry was performed using the [employer] System. Bone mineral density as measured about the Lumbar spine is: ----- L1-L4(G/cm2): 1.764 T Score Values are as follows: ----- L1: 3.4 ----- L2: 4.3 ----- L3: 7.1 ----- L4: 5.1 ----- L1-L4: 4.9 Z Score Values are as follows: ----- L1: 5.1 ----- L2: 6.0 ----- L3: 8.9 ----- L4: 6.9 ----- L1-L4: 6.6 Bone mineral density baseline Bone mineral density about the R hip (g/cm2): 0.963 Bone mineral density about the L hip (g/cm2): 0.894 T Score values are as follows: -----R Neck: -1.3 -----L Neck: -1.4 -----R Total: -0.4 -----L Total: -0.9 Z Score values are as follows: -----R Neck: 0.7 -----L Neck: 0.6 -----R Total: 1.4 -----L Total: 0.9 Bone mineral density baseline FRAX%s: The graph provided illustrates a 11.5% chance for a major osteoporotic fx and a 2.3% chance f or the hips probability for fx in 10 years time. IMPRESSION: Normal (Values between +1 and -1 indicate normal bone mass). Consider repeating this study in 5 year s or sooner if there is some new clinical indication. NOTE: T-SCORE=SD OF THE YOUNG ADULT MEAN. [facility], , 03/06/2025 2:34 PM
== END | disposition home or self-care (01) ==
LOC: RADBDWWP 10:17
PROVIDERS: ATTEND Internal Medicine
DX: M85.89 Other specified disorders of bone density and structure, multiple sites (principal); N95.8 Other specified menopausal and perimenopausal disorders
CPT/HCPCS: 77080